=== PATIENT | male | born 1955 | race Caucasian/White ===

== ENCOUNTER → 2022-10-23 14:31 | Outpatient (CLI) | payer MEDICARE, SELFPAY ==
--- NOTE | 2022-10-23 | DI.RAD.S_ITS ---
PROCEDURE: XR CHEST 2V INDICATIONS: Other forms of dyspnea TECHNIQUE: 2 views of the chest were acquired. COMPARISON: None. FINDINGS: Surgical changes and devices: None. Lungs and pleura: Lungs are clear. No pleural effusions or pneumothorax. Mediastinum: Mediastinal contours are normal. Heart size is normal. Bones and chest wall: No suspicious bony abnormalities. Soft tissues appear unremarkable. IMPRESSION: No evidence acute pulmonary process. Dictated by: Azeem Lai M.D. on 10/23/2022 at 15:28 Approved by: Azeem Lai M.D. on 10/23/2022 at 15:28
== END ==
PROVIDERS: Family Provider Family Medicine; PCP Family Medicine; Referring Provider Family Medicine; Visit Provider Family Medicine
DX: R06.09 Other forms of dyspnea (principal)
CPT/HCPCS: 71046

== ENCOUNTER → 2022-10-26 12:36 | Outpatient (CLI) | payer MEDICARE, SELFPAY ==
--- NOTE | 2022-10-26 | DI.MRI.S_ITS ---
PROCEDURE: MR LUMBAR SPINE WO CON INDICATIONS: Hyperreflexia TECHNIQUE: Noncontrast sagittal T1 spin echo and T2 fast echo, sagittal STIR, and T2 fast spin echo through the lumbar spine. In cases with scoliosis, additional coronal T2 fast spin echo may be performed. COMPARISON: None. FINDINGS: Image quality: Excellent. Alignment and Curvature: There is normal bony alignment. Bone Marrow: Edematous Modic type 1 degenerative endplate changes noted at L1-2. Sclerotic chronic endplate changes noted in the lower lumbar spine Spinal Cord: Conus medullaris terminates at the L1 level. Visualized cord demonstrates normal signal and size. Paraspinous Soft Tissues: No paravertebral masses. T12-L1: Normal appearance. L1-L2: Disc space narrowing with circumferential disc bulge and hypertrophic facet joints results in [id number] central stenosis. Moderate bilateral foraminal stenosis L2-L3: Disc space narrowing with circumferential disc bulge and hypertrophic facet joints results in mild central stenosis. Moderate left and mild right foraminal stenosis L3-L4: Disc space narrowing and circumferential disc bulge with hypertrophic facet joints results in moderate central stenosis. Moderate bilateral foraminal stenosis L4-L5: Disc space narrowing and circumferential disc bulge present. Mild central and severe right foraminal stenosis. Severe left foraminal stenosis. L5-S1: Disc space narrowing with circumferential disc bulge results in mild central stenosis with effacement of the right lateral recess present. Moderate bilateral foraminal stenosis IMPRESSION: Multilevel degenerative disc disease and arthropathy results in varying degrees of central and foraminal stenosis including moderate central stenosis at L3-4 and severe right foraminal stenosis L4-5 Approved by: Samuel Hassan M.D. on 10/26/2022 at 18:40
== END ==
PROVIDERS: Family Provider Family Medicine; PCP Family Medicine; Referring Provider Family Medicine; Visit Provider Family Medicine
DX: M51.36 Other intervertebral disc degeneration, lumbar region (principal); M51.37 Other intervertebral disc degeneration, lumbosacral region; M47.816 Spondylosis without myelopathy or radiculopathy, lumbar region; M48.061 Spinal stenosis, lumbar region without neurogenic claudication; M48.07 Spinal stenosis, lumbosacral region; R29.2 Abnormal reflex
CPT/HCPCS: 72148

== ENCOUNTER → 2022-11-11 10:48 | Outpatient (CLI) | payer MEDICARE, SELFPAY ==
--- NOTE | 2022-11-11 | DI.NM.S_ITS ---
PROCEDURE: NM DAMIAN PERF SPECT R&S PHARM Rest and pharmacological stress myocardial perfusion SPECT with gated imaging and ejection fraction RADIOPHARMACEUTICAL: 12.5 mCi Tc-99m tetrafosmin IV at rest and 25.9 mCi Tc-99m tetrafosmin IV at peak effect of pharmacological stress. A [id number] was performed. INDICATIONS: Other forms of dyspnea TECHNIQUE: Radiopharmaceutical was injected at peak stress test, and also at rest. SPECT images were obtained. SPECT myocardial perfusion images were displayed in short axis, horizontal long axis, and vertical long axis views. Gated images were reviewed using Room software. COMPARISON: None. CARDIAC STRESS: A pharmacologic stress test was performed under the supervision of an attending staff, using an infusion of regadenoson 0.4 mg IV. Hemodynamic data: There is normal blood pressure and heart rate response to pharmacologic stress. Symptoms: The patient denied anginal chest pain. EKG: No diagnostic changes of ischemia; no ectopy. FINDINGS: Raw data: There is good myocardial uptake of radiotracer. No significant motion artifacts. Olpq-fc-immnx ratio is 0.21 (normal is less than 0.38 for tetrafosmin tracer). Left ventricle function: Gated images demonstrate normal left ventricular wall thickening. No segmental wall motion abnormalities. No transient ischemic dilation; TID is 0.93 (normal less than 1.3). Left ventricle resting end diastolic volume is 96 mL. Left ventricle stress ejection fraction is >75%; normal range is above 45%. Myocardial perfusion: The rest images are of poor quality. There is normal distribution of activity in the right and left ventricular myocardium in the stress supine and prone images. IMPRESSION: Low risk study. No evidence of pharmacologic induced ischemia or scar. Normal LV size with hyperdynamic function. Dictated by: Maddie Mera D.O. on 11/11/2022 at 17:35 Approved by: Maddie Mera D.O. on 11/11/2022 at 17:38
== END ==
PROVIDERS: Family Provider Family Medicine; PCP Family Medicine; Referring Provider Family Medicine; Visit Provider Family Medicine
DX: R06.09 Other forms of dyspnea (principal)
CPT/HCPCS: 78452; 93017; A9502; J2785

== ENCOUNTER → 2023-03-22 10:57 | Outpatient (CLI) | payer MEDICARE, SELFPAY ==
--- NOTE | 2023-03-22 10:59 | DI.RAD.S_ITS ---
PROCEDURE: XR LUMBAR SPINE MIN 4V INDICATIONS: BACK PAIN TECHNIQUE: 5 views of the lumbar spine were acquired, including bilateral oblique views. COMPARISON: [facility], , L-SPINE 2-3 VIEWS, 04/10/2014, 15:55. FINDINGS: Bones: 5 nonrib-bearing vertebrae are present. There is normal bony alignment. No vertebral body compression fractures. No suspicious bony lesions. Multilevel lower lumbar facet arthropathy. Multilevel severe degenerative disc space loss. Soft tissues: Overlying bowel gas pattern is normal. No suspicious soft tissue calcifications. Oblique images: No pars defects. IMPRESSION: 1. Diffuse degenerative change with multilevel degenerative disc space loss and facet arthropathy. 2. No pars defects. 3. No acute bony abnormality noted. Dictated by: Azeem Lai M.D. on 03/22/2023 at 12:53 Approved by: Azeem Lai M.D. on 03/22/2023 at 12:54
== END ==
PROVIDERS: Family Provider Family Medicine; PCP Family Medicine; Referring Provider Physical Medicine & Rehabilitation; Visit Provider Physical Medicine & Rehabilitation
DX: M54.9 Dorsalgia, unspecified (principal); M47.816 Spondylosis without myelopathy or radiculopathy, lumbar region
CPT/HCPCS: 72110

== ENCOUNTER → 2023-04-06 18:44 | Outpatient (CLI) | payer MEDICARE, SELFPAY ==
--- NOTE | 2023-04-06 19:00 | DI.MRI.S_ITS ---
PROCEDURE: MR CERVICAL SPINE WO CON INDICATIONS: Cervical myelopathy TECHNIQUE: Noncontrast sagittal T1 spin echo and T2 fast spin echo, sagittal STIR, foraminal oblique sagittal T2 fast spin echo, and axial gradient echo or T2 fast spin echo through the cervical spine. COMPARISON: [facility], MR, C-SPINE WITHOUT CONTRAST, 08/31/2014, 7:09. FINDINGS: Image quality: Excellent. Alignment and Curvature: Interval increase in anterolisthesis of C3 on C4, currently 4.5 mm, previously 2 mm. Interval increase in retrolisthesis C4 on C5, currently 4.0 mm and previously 2 mm. Posterior decompressive laminectomy at of C3 through C6. Bone Marrow: Marrow demonstrates normal overall signal. Spinal Cord: Significant cord signal changes and narrowing of the cord at mid C3 through mid C5 is stable in appearance consistent with chronic myelomalacia. No cerebellar tonsillar herniation. Paraspinous Soft Tissues: No paravertebral masses. Prevertebral soft tissues are normal in thickness. C2-C3: Interval increase in disc bulge. Minimal superimposed central posterior disc protrusion. AP diameter of the central canal is 10.2 mm. [id number] bilateral foraminal narrowing. C3-C4: Posterior decompressive laminectomy. 4.5 mm anterolisthesis of C3 on C4. Posterior disc bulge. No canal stenosis. Severe bilateral foraminal narrowing with bilateral foraminal C3 nerve root impingement. C4-C5: 4.0 mm of retrolisthesis of C4 on C5. Posterior decompressive laminectomy. No canal stenosis. Severe bilateral foraminal narrowing with bilateral foraminal C5 nerve root impingement. C5-C6: Posterior laminectomy. No canal stenosis. Bilateral facet hypertrophy and uncovertebral joint hypertrophy. Severe bilateral foraminal narrowing with bilateral foraminal C6 nerve root impingement. C6-C7: Posterior laminectomy. No canal stenosis. Moderate bilateral foraminal narrowing with flattening deformity on the exiting bilateral C7 nerve roots. C7-T1: No canal stenosis or foraminal stenosis. IMPRESSION: 1. Impressive changes of myelomalacia of the cord with abnormality from mid C3 through mid C5, stable. 2. Remote posterior decompressive laminectomy. 3. No cervical canal stenosis. 4. Significant multilevel foraminal narrowing with bilateral foraminal nerve root impingement at C3-C4, C4-C5, and C5-C6. Dictated by: Azeem Lai M.D. on 04/07/2023 at 15:13 Approved by: Azeem Lai M.D. on 04/07/2023 at 15:28
== END ==
LOC: MRI 18:44
PROVIDERS: Family Provider Family Medicine; PCP Family Medicine; Referring Provider Physical Medicine & Rehabilitation; Visit Provider Physical Medicine & Rehabilitation
DX: G95.89 Other specified diseases of spinal cord (principal); M48.02 Spinal stenosis, cervical region; Z98.1 Arthrodesis status
CPT/HCPCS: 72141